=== PATIENT | male | born 1965 | race Caucasian/White ===

== ENCOUNTER 2025-04-03 13:37 | Emergency (ER) | payer OTHER ==
[~2025-04-03] VITALS: Ht 180.3 cm; Wt 113.4 kg
[2025-04-03 14:03] VITALS: TEMP 97.9
[2025-04-03 14:49] LABS: BASOPHILS % 0.3 % (0.0-1.0); EOSINOPHILS % 3.3 % (0.0-6.0); LYMPHOCYTES % 12.4 % (18.0-39.1); MONOCYTES % 10.5 % (4.4-11.3); NEUTROPHILS % 73.2 % (38.7-80.0); RED CELL DISTRIBUTION WIDTH 13.1 % (11.7-14.4)
[2025-04-03] MEDS ORDERED: HYDROCHLOROTH12.5 MG PO (15:03)
[2025-04-03] MEDS ORDERED: SIMVASTATIN40 MG PO (15:03)
[2025-04-03 15:05] LABS: EST GLOMERULAR FILTRATION RATE 102.0 ML/MIN (>=60)
[2025-04-03 15:27] LABS: LEUKOCYTE ESTERASE ,URINE NEGATIVE (NEGATIVE); PROTEIN,URINE DIPSTICK NEGATIVE (NEGATIVE); URINE UROBILINOGEN 0.2 mg/dL (0.2 - 1)
[2025-04-03] MEDS ORDERED: IOPAMIDOL 370 MG/ML 100 ML INFUS..BTL INJ ONE (15:49)
[2025-04-03 15:51] LABS: WBC,URINE (MAN) 0-5 /HPF (0-5)
[2025-04-03 17:50] VITALS: PULSE 81; RESP 18; O2SAT 100
== END 2025-04-03 17:50 | disposition home or self-care (01) ==
LOC: ER 15:15
DX: K43.9 Ventral hernia without obstruction or gangrene (principal); R19.7 Diarrhea, unspecified; R10.33 Periumbilical pain; I10 Essential (primary) hypertension; E78.5 Hyperlipidemia, unspecified; M79.673 Pain in unspecified foot; G89.29 Other chronic pain
CPT/HCPCS: 36415; 74177; 80053; 81001; 85025; 99283; Q9967

== ENCOUNTER → 2025-06-27 | Day surgery (SDC) | payer OTHER ==
[2025-06-26 13:38] LABS: BASOPHILS % 0.6 % (0.0-1.0); EOSINOPHILS % 2.4 % (0.0-6.0); LYMPHOCYTES % 13.2 % (18.0-39.1); MONOCYTES % 8.8 % (4.4-11.3); NEUTROPHILS % 74.7 % (38.7-80.0); RED CELL DISTRIBUTION WIDTH 12.6 % (11.7-14.4)
[2025-06-26 14:00] LABS: EST GLOMERULAR FILTRATION RATE 104.0 ML/MIN (>=60)
[~2025-06-27] MED LIST: ACETAMINOPHEN 1000 MG/100 ML 100 ML IV ONE; AMLODIPINE BESY10 MG PO; BENICAR20 MG PO; FENTANYL CITRATE/PF 100MCG/2 ML INJ ONE; HYDROCHLOROTH12.5 MG PO; LIDOCAINE HCL 2% LOCAL INJ 5 ML SDV VIAL INJ ONE; LOVAZA1 GM PO; MIDAZOLAM HCL 2 MG/2 ML VIAL ONE; PROPOFOL IV EMULSION 10 MG/ML 20 ML VIAL ONE; ROCURONIUM BROMIDE 1 ML IV ONE; ROPIVACAINE 246.25 MG, EPINEPHRINE HCL 1:1000 1ML 0.5 MG, CLONIDINE HCL 0.08 MG, KETORO... INJ ONE; SEVOFLURANE INHAL SOLN 250 ML PEN BTL ONE; SIMVASTATIN40 MG PO; SUGAMMADEX SODIUM 200 MG/2 ML VIAL IV ONE
[2025-06-27] MEDS: LACTATED RINGER'S 1,000 ML ONE (09:59)
[2025-06-27 13:25] VITALS: BP 148/90; PULSE 88; RESP 16; O2SAT 97
== END | disposition home or self-care (01) ==
LOC: OR 08:48
PROVIDERS: ATTEND Surgery
DX: K43.6 Other and unspecified ventral hernia with obstruction, without gangrene (principal); I10 Essential (primary) hypertension; E78.5 Hyperlipidemia, unspecified; F81.9 Developmental disorder of scholastic skills, unspecified; Z01.810 Encounter for preprocedural cardiovascular examination; Z01.812 Encounter for preprocedural laboratory examination; Z79.899 Other long term (current) drug therapy
CPT/HCPCS: 36415; 49594; 80048; 85025; 88302; 93005; C1781; J0131; J0169; J1885; J2003; J2250; J2704; J2795; J3010; J7121